=== PATIENT | male | born 1960 | race Caucasian/White ===

== ENCOUNTER 2016-09-11 10:40 | Inpatient (IN) ==
[2016-09-11] MEDS ORDERED: NS 500 ML IV ONE (13:18)
[2016-09-11] MEDS ORDERED: NS 2,000 ML ONE (13:25)
[2016-09-11 13:34] LABS: MANUAL DIFF NEEDED? NO
[2016-09-11 13:46] LABS: BASO% 0.9 % (0.0-0.8); EOS# 0.29 X1000 (0.0-0.7); EOS% 2.7 % (0.0-10.0); HEMATOCRIT 39.9 % (42.0-52.0); HEMOGLOBIN 13.3 g/dL (14.0-18.0); LYMPH# 2.05 X1000 (1.2-3.4); LYMPH% 19.3 % (20.5-51.1); MCH 29.3 PG (27-31); MCHC 33.3 g/dL (33-37); MCV 87.9 FL (81-99); MONO# 0.89 X1000 (0.11-0.59); MONO% 8.4 % (1.7-9.3); MPV 10.3 FL (7.4-10.4); NEUT% 68.7 % (42.2-75.2); PLT 222 X1000 (130-400); RBC 4.54 XMIL (4.7-6.1)
[2016-09-11 13:50] LABS: AGAP 13; ALBUMIN 3.7 g/dL (3.5-5.0); ALKALINE PHOSPHATASE 99 U/L (32-122); AMYLASE 96 U/L (20-200); BUN 20 mg/dL (8-22); CALCIUM 9.4 mg/dL (8.8-10.2); CHLORIDE 95 mmol/L (98-107); COSMO 282; GOT 14 U/L (10-34); GPT 13 U/L (10-44); LIPASE 21 U/L (13-60); POTASSIUM 4.5 mmol/L (3.5-5.1); SODIUM 135 mmol/L (136-145); TCO2 27 mmol/L (25-35); TOTAL BILIRUBIN 0.59 mg/dL (0.20-1.00); TOTAL PROTEIN 7.3 g/dL (6.3-8.3)
--- NOTE | 2016-09-11 14:17 | PROVIDER DOCUMENTATION ---
HPI-Abdominal Pain/GI Problem - General Chief Complaint: Diarrhea Stated Complaint: DIRRHEA,ABD PAIN,ABSCESS,DIABETIC,FOOT NUMBNESS Time Seen by Provider: 09/11/16 12:29 Source: patient Allergies/Adverse Reactions: Patient Allergies Allergy/AdvReac Type Severity Reaction Status Date / Time No Known Allergies Allergy Verified 09/11/16 12:53 Home Medications: Home Medication List Medication Instructions Recorded Confirmed Last Taken Type Diazepam [Valium] 10 mg PO BID 09/11/16 09/11/16 09/11/16 History Hydrocodone/Acetaminophen [[place] 10 mg PO PRN PRN 09/11/16 09/11/16 09/11/16 11: 00 History 10-325 Tablet] - History of Present Illness-ABD Nature of Presenting Problems: Pt with prior colostomy- placed 2 years ago with reanastomosis about 6 months ago. since then has had chronic diarrhea- Complains of increasing LLQ pain and rectal pain getting worse over last 2 weeks, and much worse last 3 days. Cannot sleep. Has incontinence. Insulin dependent diabetic on novolog and lantus. Abdominal Pain Onset Location: reports: LLQ Pain Radiation: reports: other (to rectal area) Quality of Pain: reports: burning, sharp Severity in ED: reports: severe (03/30) Onset/Duration: reports: gradual Timing: reports: still present Exposure to sick contacts?: No Modifying Factors: improves with: defecating, eating (has diarrhea every time she eats) Associated Symptoms: reports: diarrhea, vomiting, weakness Last BM: this morning Dark Stools Present?: reports: none noticed Rectal Bleeding: reports: none Bruising or Bleeding Gums?: No Similar Symptoms Previously?: No Review of Systems - Adult - REVIEW OF SYSTEMS - ADULT Constitutional: reports: see HPI, fatique. denies: chills, fever Eyes: reports: no symptoms reported Ears, Nose, Mouth & Throat: reports: no symptoms reported Cardiovascular: reports: no symptoms reported Respiratory: reports: no symptoms reported Gastrointestinal: reports: see HPI, abdominal pain, diarrhea, other (rectal pain ) Genitourinary: reports: no symptoms reported Musculoskeletal: reports: no symptoms reported Neurological: reports: numbness (feet) Psychiatric: reports: no symptoms reported Endocrine: reports: no symptoms reported Hematologic/Lymphatic: reports: no symptoms reported Allergic/Immunologic: reports: no symptoms reported Past History - Adult - PAST MEDICAL HISTORY-ADULT Review of Records: reports: Nursing Assessment Review, Medications Reviewed Major Childhood Illnesses: reports: history unknown Cardiovascular: reports: HTN Respiratory: reports: COPD Gastrointestinal: reports: colitis (s/p colostomy? unclear cause), other ( colostomy 2 yr ago, reanastomosis 6 months ago) Genitourinary: reports: denies history Musculoskeletal: reports: denies history Neurological: reports: other (neuropathy) Endocrine/Immune: reports: Diabetes Diabetes Type: Type 1 Diabetes controlled by:: Insulin Dependent (novolog and lantas- variable control ) - SOCIAL HISTORY Smoking: cigarettes, greater than 1 pack/day Physical Exam-General - PHYSICAL EXAM-ADULT Initial Vital Signs Reviewed: Yes - CONSTITUTIONAL General Appearance: mild distress - EYES Eyes: PERRL/EOMI - HEAD, EARS, NOSE, MOUTH & THROAT HENMT: normocephalic/atraumatic, normal ENT inspection - NECK Neck: non-tender, full range of motion - RESPIRATORY Respiratory: chest non-tender, lungs clear, normal breath sounds - CARDIOVASCULAR Cardiovascular: regular rate, rhythm, no edema, no gallop, no murmur - GASTROINTESTINAL (ABDOMEN) Abdominal Exam: soft, tenderness (LLQ no guard or rebound) - GENITOURINARY Male Genitalia: normal genitalia Rectal Exam: other (marked excoriation and maceration in perirectal area- extending in 5 cm area around anus without clear abscess or fluctuant area. large about light brown stool) - LYMPHATIC Lymphatic: no adenopathy - MUSCULOSKELETAL Back Exam: normal inspection Extremity: normal range of motion, non-tender Peripheral Pulses: dorsalis-pedis (R): 2+, dorsalis-pedis (L): 2+ - SKIN Integumentary: normal color, normal turgor, warm/dry - NEUROLOGIC Neurologic: grossly normal Progress - PLAN OF CARE/RESULTS Progress/Plan/Lab Results: Laboratory Tests 09/11/16 09/11/16 09/11/16 13:25 13:25 13:25 WBC 10.62 RBC 4.54 L Hgb 13.3 L Hct 39.9 L MCV 87.9 MCH 29.3 MCHC 33.3 RDW Std Deviation 13.4 Plt Count 222 MPV 10.3 Immature Gran % (Auto) 0.0 Neut % (Auto) 68.7 Lymph % (Auto) 19.3 L [place] % (Auto) 8.4 Eos % (Auto) 2.7 Baso % (Auto) 0.9 H Immature Gran # (Auto) 0.00 Neut # (Auto) 7.29 H Lymph # (Auto) 2.05 [place] # (Auto) 0.89 H Eos # (Auto) 0.29 Baso # (Auto) 0.10 Sodium 135 L Potassium 4.5 Chloride 95 L Carbon Dioxide 27 Anion Gap 13 BUN 20 Creatinine 0.9 Estimated GFR/1.73 m2 > 60 BUN/Creatinine Ratio 22 Glucose 257 H Estimat Average Glucose 252 Hemoglobin A1c 10.4 H Calculated Osmolality 282 Calcium 9.4 Magnesium Iron TIBC % Saturation Unsat Iron Binding Total Bilirubin 0.59 AST 14 ALT 13 Alkaline Phosphatase 99 Total Protein 7.3 Albumin 3.7 Globulin 3.6 Albumin/Globulin Ratio 1.0 Amylase 96 Lipase 21 Plasma Lactate Urine Source Urine Color Urine Clarity Urine pH Ur Specific [place] Urine Protein Urine Ketones Urine Blood Urine Nitrite Urine Bilirubin Urine Urobilinogen Urine Microscopic RBC Urine WBC Urine Microscopic WBC Ur Epithelial Cells Urine Bacteria Urine Glucose 09/11/16 09/11/16 09/11/16 13:25 13:25 15:00 WBC RBC Hgb Hct MCV MCH MCHC RDW Std Deviation Plt Count MPV Immature Gran % (Auto) Neut % (Auto) Lymph % (Auto) [place] % (Auto) Eos % (Auto) Baso % (Auto) Immature Gran # (Auto) Neut # (Auto) Lymph # (Auto) [place] # (Auto) Eos # (Auto) Baso # (Auto) Sodium Potassium Chloride Carbon Dioxide Anion Gap BUN Creatinine Estimated GFR/1.73 m2 BUN/Creatinine Ratio Glucose Estimat Average Glucose Hemoglobin A1c Calculated Osmolality Calcium Magnesium 1.7 Iron 46 L TIBC 340 % Saturation 14 Unsat Iron Binding 294 Total Bilirubin AST ALT Alkaline Phosphatase Total Protein Albumin Globulin Albumin/Globulin Ratio Amylase Lipase Plasma Lactate Urine Source CLEAN CATCH Urine Color YELLOW Urine Clarity CLEAR Urine pH 5.5 Ur Specific [place] <= 1.005 Urine Protein NEGATIVE Urine Ketones NEGATIVE Urine Blood SMALL A Urine Nitrite NEGATIVE Urine Bilirubin NEGATIVE Urine Urobilinogen 0.2 Urine Microscopic RBC <10 Urine WBC NEGATIVE Urine Microscopic WBC 10-20 A Ur Epithelial Cells <10 Urine Bacteria NEGATIVE Urine Glucose >=1000 A 09/11/16 16:07 WBC RBC Hgb Hct MCV MCH MCHC RDW Std Deviation Plt Count MPV Immature Gran % (Auto) Neut % (Auto) Lymph % (Auto) [place] % (Auto) Eos % (Auto) Baso % (Auto) Immature Gran # (Auto) Neut # (Auto) Lymph # (Auto) [place] # (Auto) Eos # (Auto) Baso # (Auto) Sodium Potassium Chloride Carbon Dioxide Anion Gap BUN Creatinine Estimated GFR/1.73 m2 BUN/Creatinine Ratio Glucose Estimat Average Glucose Hemoglobin A1c Calculated Osmolality Calcium Magnesium Iron TIBC % Saturation Unsat Iron Binding Total Bilirubin AST ALT Alkaline Phosphatase Total Protein Albumin Globulin Albumin/Globulin Ratio Amylase Lipase Plasma Lactate 1.2 Urine Source Urine Color Urine Clarity Urine pH Ur Specific [place] Urine Protein Urine Ketones Urine Blood Urine Nitrite Urine Bilirubin Urine Urobilinogen Urine Microscopic RBC Urine WBC Urine Microscopic WBC Ur Epithelial Cells Urine Bacteria Urine Glucose Orders Category Date Time Status FSBS [Finger Stick Blood Sugar (ED)] DIRECTED Care 09/11/16 13:19 Active Nursing- MD Consult Request ROUTINE Care 09/11/16 16:31 Active Nursing- MD Consult Request ROUTINE Care 09/11/16 16:36 Active Saline Loc DIRECTED Care 09/11/16 13:17 Active MD [Physician/Provider Consults] Routine Cons 09/11/16 16:36 Ordered Physician/Provider Consults Routine Cons 09/11/16 16:31 Ordered NPO Diet 09/11/16 13:17 Active CHEST-PORTABLE [RAD] Stat Exams 09/11/16 15:[address] ABD/PELVIS W/ IV CONT ONLY [CT] Stat Exams 09/11/16 14:11 Completed A1C HGB W EST AVG GLUCOSE [CHEM] Timed Lab 09/11/16 13:25 Completed AMYLASE [CHEM] Stat Lab 09/11/16 13:25 Completed BLOOD CULTURE [BLDCUL] Stat Lab 09/11/16 16:03 Received C DIFF TOXIN [STOOL] Routine Lab 09/11/16 16:38 Ordered CBC WITH ELECTRONIC DIFF [HEME] Stat Lab 09/11/16 13:25 Completed COMPREHENSIVE METABOLIC PANEL [CHEM] Stat Lab 09/11/16 13:25 Completed ELECTROLYTES STOOL [LINCOLN] Routine Lab 09/11/16 16:34 Uncollected FOLATE Timed Lab 09/11/16 13:25 Received FREE T4 Timed Lab 09/11/16 13:25 Received H PYLORI ANTIGEN STOOL [LINCOLN] Stat Lab 09/11/16 16:34 Uncollected LACTATE, PLASMA [CHEM] Stat Lab 09/11/16 16:07 Completed LACTOFERRIN STOOL [PALAFOX] Routine Lab 09/11/16 16:35 Uncollected LIPASE [CHEM] Stat Lab 09/11/16 13:25 Completed MAGNESIUM [CHEM] Timed Lab 09/11/16 13:25 Completed OCCULT BLOOD SCREENING [STOOL] Stat Lab 09/11/16 13:09 Completed OVA AND PARASITE W/TRICHROME [STOOL] Routine Lab 09/11/16 16:36 Uncollected TSH Timed Lab 09/11/16 13:25 Received UIBC W TOTAL IRON [CHEM] Timed Lab 09/11/16 13:25 Completed URINE CULTURE [RM] Routine Lab 09/11/16 15:45 Received WBC STOOL [STOOL] Stat Lab 09/11/16 16:34 Uncollected 0.9% Sodium Chloride Inj [Ns] 1,000 ml Med 09/11/16 13:25 Discontinued .ROUTE As Directed 0.9% Sodium Chloride Inj [Ns] 1,000 ml Med 09/11/16 15:55 Active IV 100 mls/hr 0.9% Sodium Chloride Inj [Ns] 500 ml Med 09/11/16 13:18 Discontinued IV 999 mls/hr Ciprofloxacin 400 mg/D5w [Cipro 400 mg/D5w] 200 ml Med 09/11/16 16:27 Active IV NOW Ciprofloxacin 400 mg/D5w [Cipro 400 mg/D5w] 200 ml Med 09/11/16 16:30 Ordered IV Q12H Hydromorphone [Dilaudid] Med 09/11/16 16:37 Active 1 mg IV Q4H PRN PRN Metronidazole 500 mg/Ns [Flagyl 500 mg/Ns] 100 ml Med 09/11/16 16:30 Active IV Q6H Morphine Med 09/11/16 15:57 Discontinued 2 mg IV Q2H PRN PRN EKG [EKG] Stat Ther 09/11/16 15:50 Ordered Echo Spec/Color Dop W/O Contra [CV] Routine Ther 09/11/16 16:58 Ordered Venous U/S Bilateral Legs [CV] Routine Ther 09/11/16 16:58 Ordered Transfer/Admit Order [TRANSFER] Routine Transfer 09/11/16 16:26 Ordered Vital Signs Temp Pulse Resp BP Pulse Ox 09/11/16 15:44 98.6 F 85 22 129/78 100 09/11/16 10:52 98.1 F 101 H 18 131/89 100 No Known Allergies Allergy (Verified 09/11/16 12:53) Diazepam [Valium] 10 mg PO BID 09/11/16 Hydrocodone/Acetaminophen [[place] 10-325 Tablet] 10 mg PO PRN PRN 09/11/16 Dietary Diet NPO Start FriSep 11 1317 I&O 09/10/16 09/11/16 09/12/16 06:59 06:59 06:59 Output Total 90 Balance -90 Laboratory 09/11/16 09/11/16 09/11/16 16:07 15:00 13:25 WBC RBC Hgb Hct MCV MCH MCHC RDW Std Deviation Plt Count MPV Immature Gran % (Auto) Neut % (Auto) Lymph % (Auto) [place] % (Auto) Eos % (Auto) Baso % (Auto) Immature Gran # (Auto) Neut # (Auto) Lymph # (Auto) [place] # (Auto) Eos # (Auto) Baso # (Auto) Sodium Potassium Chloride Carbon Dioxide Anion Gap BUN Creatinine Estimated GFR/1.73 m2 BUN/Creatinine Ratio Glucose Estimat Average Glucose Hemoglobin A1c Calculated Osmolality Calcium Magnesium Iron 46 L TIBC 340 % Saturation 14 Unsat Iron Binding 294 Total Bilirubin AST ALT Alkaline Phosphatase Total Protein Albumin Globulin Albumin/Globulin Ratio Amylase Lipase Plasma Lactate 1.2 Urine Source CLEAN CATCH Urine Color YELLOW Urine Clarity CLEAR Urine pH 5.5 Ur Specific [place] <= 1.005 Urine Protein NEGATIVE Urine Ketones NEGATIVE Urine Blood SMALL A Urine Nitrite NEGATIVE Urine Bilirubin NEGATIVE Urine Urobilinogen 0.2 Urine Microscopic RBC <10 Urine WBC NEGATIVE Urine Microscopic WBC 10-20 A Ur Epithelial Cells <10 Urine Bacteria NEGATIVE Urine Glucose >=1000 A 09/11/16 09/11/16 09/11/16 13:25 13:25 13:25 WBC 10.62 RBC 4.54 L Hgb 13.3 L Hct 39.9 L MCV 87.9 MCH 29.3 MCHC 33.3 RDW Std Deviation 13.4 Plt Count 222 MPV 10.3 Immature Gran % (Auto) 0.0 Neut % (Auto) 68.7 Lymph % (Auto) 19.3 L [place] % (Auto) 8.4 Eos % (Auto) 2.7 Baso % (Auto) 0.9 H Immature Gran # (Auto) 0.00 Neut # (Auto) 7.29 H Lymph # (Auto) 2.05 [place] # (Auto) 0.89 H Eos # (Auto) 0.29 Baso # (Auto) 0.10 Sodium Potassium Chloride Carbon Dioxide Anion Gap BUN Creatinine Estimated GFR/1.73 m2 BUN/Creatinine Ratio Glucose Estimat Average Glucose 252 Hemoglobin A1c 10.4 H Calculated Osmolality Calcium Magnesium 1.7 Iron TIBC % Saturation Unsat Iron Binding Total Bilirubin AST ALT Alkaline Phosphatase Total Protein Albumin Globulin Albumin/Globulin Ratio Amylase Lipase Plasma Lactate Urine Source Urine Color Urine Clarity Urine pH Ur Specific [place] Urine Protein Urine Ketones Urine Blood Urine Nitrite Urine Bilirubin Urine Urobilinogen Urine Microscopic RBC Urine WBC Urine Microscopic WBC Ur Epithelial Cells Urine Bacteria Urine Glucose 09/11/16 13:25 WBC RBC Hgb Hct MCV MCH MCHC RDW Std Deviation Plt Count MPV Immature Gran % (Auto) Neut % (Auto) Lymph % (Auto) [place] % (Auto) Eos % (Auto) Baso % (Auto) Immature Gran # (Auto) Neut # (Auto) Lymph # (Auto) [place] # (Auto) Eos # (Auto) Baso # (Auto) Sodium 135 L Potassium 4.5 Chloride 95 L Carbon Dioxide 27 Anion Gap 13 BUN 20 Creatinine 0.9 Estimated GFR/1.73 m2 > 60 BUN/Creatinine Ratio 22 Glucose 257 H Estimat Average Glucose Hemoglobin A1c Calculated Osmolality 282 Calcium 9.4 Magnesium Iron TIBC % Saturation Unsat Iron Binding Total Bilirubin 0.59 AST 14 ALT 13 Alkaline Phosphatase 99 Total Protein 7.3 Albumin 3.7 Globulin 3.6 Albumin/Globulin Ratio 1.0 Amylase 96 Lipase 21 Plasma Lactate Urine Source Urine Color Urine Clarity Urine pH Ur Specific [place] Urine Protein Urine Ketones Urine Blood Urine Nitrite Urine Bilirubin Urine Urobilinogen Urine Microscopic RBC Urine WBC Urine Microscopic WBC Ur Epithelial Cells Urine Bacteria Urine Glucose - EKG 1 Time of EKG reading by physician:: 16:00 EKG Read and Signed by:: Sonia León EKG Interpretation (*Must complete 3 of following elements*): Normal Rate: 88 Rhythm: nsr [place]: normal DC Interval: normal ST Wave: normal - CT/MRI 1 CT Study: Abdomen (distended bladder, pneumatosis coli in proximal colon, gastric wall thickening, tight stenosis of L common iliac arterey) - CONSULTS/PCP/HOSPITALIST Notification #1 *Consult/PCP/Hospitalist*: Dr Escamilla Time Discussed: 16:15 Consult Disposition: Will see in ED, Admit - CHANGE OF SHIFT REPORT (ED Provider) Tentative Impression of Patient: IDDM with abdominal pain- colitis, UTI Departure - Departure Time of Disposition Order: 16:15 DIAGNOSIS: Colitis, Diabetes, UTI (urinary tract infection) Disposition: ADMITTED INPATIENT 09 Certified Medical Emergency: Emergent Condition: Fair
[2016-09-11 15:14] LABS: URINE SOURCE CLEAN CATCH
--- NOTE | 2016-09-11 15:28 | Diag Imaging Result Document ---
PROCEDURE NAME: CT ABD/PELVIS W/ IV CONT ONLY - 09/11/2016 CT ABDOMEN AND PELVIS WITH INTRAVENOUS CONTRAST: COMPARISON: No comparison films. FINDINGS: There are increased markings in the right lung base which may simply be fibrosis. There is thickening to the gastric wall although the stomach is not distended. The liver is prominent. No focal hepatic abnormality. The spleen is mildly enlarged measuring just over 14 cm. Normal pancreas, gallbladder, and adrenal glands. Normal enhancement of the kidneys. No renal masses. No hydronephrosis. No aortic aneurysm. There is an inferior vena cava filter beneath the renal veins. There are sutures in the ascending colon. There is pneumatosis coli of the ascending and proximal transverse colon. The urinary bladder is markedly distended. The prostate is not enlarged. 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 IMPRESSION: 1. Markedly distended urinary bladder. 2. Pneumatosis coli involving the proximal colon. 3. Mild hepatosplenomegaly. 4. Thickening to the gastric wall although it is incompletely distended. 5. 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 A preliminary report was called to the Emergency Room and given to Dr León at 3 :08 p.m.. MTDD
[2016-09-11 15:40] LABS: BILIRUBIN URINE NEGATIVE (NEGATIVE); BLOOD URINE SMALL (NEGATIVE); CLARITY CLEAR (CLEAR); COLOR YELLOW; GLUCOSE URINE >=1000 mg/dL (NEGATIVE); LEUKOCYTES URINE NEGATIVE (NEGATIVE); NITRITE URINE NEGATIVE (NEGATIVE); PH URINE 5.5; PROTEIN URINE NEGATIVE (NEGATIVE); SP GRAVITY URINE <= 1.005; UROBILINOGEN URINE 0.2 EU/dL (0.2-1.0)
[2016-09-11 15:45] LABS: URINE CULTURE NEEDED? YES; URINE EPITHELIAL CELLS <10 /HPF (<10); URINE RBC <10 /HPF (<10)
[2016-09-11] MEDS ORDERED: NS 1,000 ML IV ONE (15:55)
[2016-09-11] MEDS ORDERED: MORPHINE IV PRN (15:57)
[2016-09-11] MEDS ORDERED: CIPRO 400 MG/D5W 200 ML IV ONE (16:27)
--- NOTE | 2016-09-11 16:40 | Diag Imaging Result Document ---
PROCEDURE NAME: CHEST-PORTABLE - 09/11/2016 PORTABLE CHEST: FINDINGS: The lungs are well expanded. The heart is not enlarged. The vessels are not distended. No pneumonia. No pleural effusions identified. No free air beneath the diaphragm. IMPRESSION: Negative chest.
[2016-09-11 16:55] LABS: IRON SATURATION 14 %; TIBC 340 ug/dL; TOTAL IRON 46 ug/dL (53-167); UNBOUND IRON 294 ug/dL (112-346)
[2016-09-11 16:57] LABS: HEMOGLOBIN A1C 10.4 % (4.8-6.0)
[2016-09-11 17:06] LABS: FREE T4 1.11 ng/dL (0.93-1.70)
[2016-09-11] MEDS ORDERED: BENADRYL IV ONE (17:14)
[2016-09-11] MEDS ORDERED: BENADRYL ONE (17:16)
--- NOTE | 2016-09-11 17:42 | HISTORY AND PHYSICAL ---
PRIMARY CARE PHYSICIAN: Dr. Guzmán in the [facility]. CHIEF COMPLAINT: Abdominal pain and diarrhea. HISTORY OF PRESENT ILLNESS: Mr. Carolina is a 55-year-old male with a history of diabetes mellitus, hypertension, nicotine dependence, history of some type of bowel perforation he blames on high blood sugar around 1 year ago. He is unable to tell us exactly what type of surgery, what diagnosis he had; however, he had a partial colectomy with an ostomy bag placed and subsequent reversal of his ostomy. He states that over the past 3 months he has been having heavy amounts of diarrhea and occasional hematochezia. He has gone to multiple hospitals in the [facility], and he feels that he has not been treated appropriately. He has been given some type of powder, we are assuming Questran, to relieve his diarrhea. He denies any fevers or chills. He does report abdominal pain in the right lower and left lower quadrants that is fairly intense at all times. He has not been able to eat much, and he has been losing weight. He came here today for an evaluation as the pain has been getting worse and worse. When he got to the ER, he had labs done which did not show anything acute. No white count. His chemistry was actually benign, but a CT of the abdomen and pelvis did reveal that he had a markedly distended urinary bladder with pneumatosis coli involving the proximal colon and thickening of the gastric wall. He was also noted to have an extremely tight stenosis over 90% involving the proximal left common iliac artery. On exam, his belly is soft and nonrigid, but he is quite tender to palpation. His vital signs are stable. He is not hypotensive, nor is he febrile. We have obtained blood cultures and started antibiotics, and we are now going to admit him for further treatment and evaluation. PAST MEDICAL HISTORY: 1. Diabetes mellitus. 2. Hypertension. 3. Some type of bowel perforation around 1 year ago for which he had a procedure done at [facility]. 4. Chronic pain. 5. Anxiety. 6. Nicotine dependence. SURGICAL HISTORY: He has had a partial colectomy and reversal of colostomy. SOCIAL HISTORY: Patient smokes 2 packs a day. He denies alcohol or drug use. He is single on disability. FAMILY HISTORY: Noncontributory. REVIEW OF SYSTEMS: General: He reports weight loss. Unspecified amount. HEENT: He denies any nasal or oral discharge. No throat pain or redness. He has had no visual changes or loss of consciousness. Respiratory: He reports occasional shortness of breath with exertion, but he denies any expectoration or phlegm production. CV: He denies any chest pain. He does report lower extremity edema bilaterally. GI: He has been having nausea, vomiting and diarrhea. Occasional hematochezia, but no hematemesis. : He denies any hematuria or dysuria. Endocrine: He denies any night sweats or hot or cold intolerance. MEDICATIONS: The patient did not bring his medication list. It is currently being compiled. ALLERGIES: No known drug allergies. PHYSICAL EXAMINATION: VITAL SIGNS: Blood pressure is 129/78, heart rate 85, respiratory rate is 22, O2 saturations 100% on room air. Temperature is 98.1 degrees. GENERAL: This is a frail, chronically ill-appearing, 55-year-old male , lying in hospital bed in no acute distress. NEUROLOGIC: He is awake, alert, and oriented. He follows commands without focal deficits. HEENT: Head is atraumatic and normocephalic. His pupils are equal, round, and reactive to light. Oral mucosa is dry. Trachea is midline. There is no JVD. CHEST: Essentially clear to auscultation bilaterally. Decreased at the bases. CV: Regular rate and rhythm. S1-S2 is noted. GI: Diffusely tender to palpation but there is no rigidity. Bowel sounds are hypoactive. EXTREMITIES: One to 2+ edema bilaterally with pulses palpable but quite diminished. Both feet are warm. Cap refill is decreased. DIAGNOSTIC DATA: WBC 10.63, hemoglobin 13.3, hematocrit 39.9, platelet count 222,000. Sodium 135, potassium 4.5, chloride 95, CO2 of 27, anion gap 13, BUN 20, creatinine 0.9 , glucose is 257, calcium 9.4, magnesium 1.7, bilirubin 0.59, AST 14, ALT 13, alkaline phosphatase 99, albumin 3.7, lipase 21. Lactate 1.2. UA shows greater than 1000 glucose, small blood, otherwise negative. CT abdomen and pelvis shows pneumatosis coli markedly, distended urinary bladder, mild hepatosplenomegaly. Thickening of the gastric wall. Extremely tight stenosis in 90% involving the proximal left common iliac. Chest x-ray is negative for acute process. ASSESSMENT AND PLAN: 1. Pneumatosis coli: We are going to obtain blood cultures. Start ciprofloxacin, Floxin, and Flagyl and consult GI and surgery. We will monitor his vitals closely and add IV fluids. 2. Lower extremity pain and edema: We are going to check bilateral lower extremity ultrasounds venous doppler and an echocardiogram given his dyspnea. 3. Dyspnea on exertion: Likely secondary to COPD given his longstanding history of heavy nicotine dependence. Chest x-ray is clear, but we are going to check an echocardiogram to rule out myocardial infarction with cardiac enzymes and check an EKG. Start duonebs. 4. Diabetes mellitus: We are checking a hemoglobin A1c. Add pattern blood sugars, and sliding scale insulin. We will add his home insulin regimen once we have obtained it. 5. Diarrhea: Please see #1. We are also going to add stool studies and continue antibiotics. 6. Hypertension: Chronic and stable at this time. We are going to add p.r.n. IV medications as needed. 7. Nicotine dependence: Patient has been highly advised to quit smoking. We will start a nicotine patch and continue daily cessation education. 8. GI prophylaxis with Protonix. Deep vein thrombosis prophylaxis with SCDs and TEDs given his gastrointestinal bleeding and colitis. Further recommendations to follow. Dictated by MANJULA Rincon for Yael Mendieta MD MTDJuan Carlos
[2016-09-11] MEDS ORDERED: DUONEB (A & A) INH PRN (17:45)
[2016-09-11] MEDS ORDERED: APRESOLINE IV PRN (17:45)
[2016-09-11] MEDS: DUONEB (A & A) INH SCH ×2 (19:45→23:15)
[2016-09-11] MEDS: DILAUDID IV PRN (20:58)
[2016-09-11] MEDS: PROTONIX IV SCH (20:58)
[2016-09-11] MEDS: SODIUM CHLORIDE 0.9% INJ SCH (20:58)
[2016-09-11] MEDS: FLAGYL 500 MG/NS 100 ML IV SCH (20:59)
[2016-09-11] MEDS: NICODERM PATCH TD SCH (20:59)
[2016-09-11] MEDS: VALIUM PO SCH (22:57)
[2016-09-11] MEDS: HUMALOG SUBQ SCH (22:57)
[2016-09-12] MEDS: DILAUDID IV PRN ×6 (00:29→23:19)
[2016-09-12 03:10] LABS: HEMATOCRIT 33.7 % (42.0-52.0); HEMOGLOBIN 11.3 g/dL (14.0-18.0); MCH 29.7 PG (27-31); MCHC 33.5 g/dL (33-37); MCV 88.5 FL (81-99); MPV 10.4 FL (7.4-10.4); RBC 3.81 XMIL (4.7-6.1)
[2016-09-12] MEDS: DUONEB (A & A) INH SCH ×6 (03:10→23:31)
[2016-09-12 03:31] LABS: AGAP 10; BUN 14 mg/dL (8-22); CALCIUM 8.2 mg/dL (8.8-10.2); CHLORIDE 102 mmol/L (98-107); COSMO 282; POTASSIUM 3.8 mmol/L (3.5-5.1); SODIUM 138 mmol/L (136-145); TCO2 26 mmol/L (25-35)
--- NOTE | 2016-09-12 04:13 | CONSULTATION ---
DATE OF CONSULTATION: 09/11/2016 CHIEF COMPLAINT: Perianal pain, chronic diarrhea, some abdominal discomfort. HISTORY OF PRESENT ILLNESS: This is a 55-year-old diabetic white male who presents with some abdominal discomfort and diarrhea and perianal irritation. He had a colectomy with a colostomy the end of 2014. He had a reversed about 6 months later in the middle of 2015. This was all at [facility]. He has had chronic loose stools since that time. He has developed perianal irritation over the past few months and it is relentless as far as discomfort. PAST HISTORY: Pertinent for diabetes, hypertension, chronic pain, anxiety, nicotine dependence. He has had a colectomy and the colostomy reversal. I do not know his home medications. He has no known drug allergies. SOCIAL HISTORY: He does smoke. He is quite mobile in his residence. FAMILY HISTORY: Not contributory. REVIEW OF SYSTEMS: No fever. He is eating. He does have some nausea. He has constant diarrhea and stooling. Denies chest pain or shortness of breath. No dysuria. PHYSICAL EXAMINATION: Vital Signs: He is afebrile. Heart rate 86, respiratory rate 20, blood pressure 151/91, somewhat disheveled. No cervical adenopathy. Lungs: Bilateral breath sounds. Heart: Regular rate and rhythm. Abdomen: Soft. A midline scar is noted. The right upper quadrant scar is noted. Bowel sounds are present. No hernia palpated. He has no peritoneal signs. Anorectal: He has severe perianal irritation with soilage. it is difficult to do a rectal exam due to the inflammation and pain. Extremities: He does have pedal pulses, better on the right than the left. ASSESSMENT: 1. Pneumatosis seen on CT scan of uncertain etiology. He does not have peritoneal signs. 2. Perianal irritation that is dramatic. He is going to need some kind of pain relief and treatment for his fecal incontinence.
[2016-09-12] MEDS: NS 1,000 ML IV SCH ×4 (05:22→20:30)
[2016-09-12] MEDS: FLAGYL 500 MG/NS 100 ML IV SCH ×4 (05:26→20:24)
--- NOTE | 2016-09-12 05:54 | EKG Report ---
Test Performed on : 09/11/2016 3:56:35 PM Test Reason : abdominal pain Blood Pressure : / mmHG Vent. Rate : 088 BPM Atrial Rate : 088 BPM P-R Int : 140 ms QRS Dur : 074 ms QT Int : 382 ms P-R-T Axes : 044 049 069 degrees QTc Int : 462 ms Normal sinus rhythm. Normal ECG No previous ECGs available Unconfirmed Result
[2016-09-12] MEDS: CIPRO 400 MG/D5W 200 ML IV SCH ×2 (06:49→17:13)
[2016-09-12] MEDS: HUMALOG SUBQ SCH ×4 (06:50→20:23)
[2016-09-12] MEDS: VALIUM PO SCH ×2 (10:07→20:24)
[2016-09-12] MEDS: NICODERM PATCH TD SCH (11:10)
--- NOTE | 2016-09-12 13:30 | ECHO REPORT ---
ORDER DATE: 09/11/2016 INTERPRETING PHYSICIAN: Dr. Michael Muse ECHOCARDIOGRAPHIC MEASUREMENTS: Interventricular septum: 0.9 cm. Left ventricular posterior wall: 0.9 cm. Diastolic diameter: 3.5 cm. Left atrium: 4 cm. Aortic root: 3.5 cm. SUMMARY OF THE 2-DIMENSIONAL IMAGIN. Normal left ventricular cavity size. Estimated ejection fraction of 55-60%. 2. Aortic valve leaflets are trileaflet. Mitral valve was normal. Pulmonic valve not well visualized. Tricuspid valve was normal. 3. Peak velocity across the aortic valve less than 2 m/sec. There is no aortic stenosis or regurgitation. There is trace to mild mitral regurgitation. There is mild tricuspid regurgitation. Peak velocity across the tricuspid valve less than 2 m/sec. 4. There is no pericardial effusion or obvious intracardiac mass or thrombus seen.
[2016-09-12] MEDS ORDERED: GOLYTELY PO ONE (14:00)
--- NOTE | 2016-09-12 14:51 | CONSULTATION ---
DATE OF CONSULTATION: 09/12/2016 GASTROENTEROLOGY CONSULTATION: ATTENDING PHYSICIAN: Dr. Mendieta. REASON FOR CONSULTATION: Abdominal pain, constipation, diarrhea, evidence of pneumatosis on CT scan. HISTORY OF PRESENT ILLNESS: Mr. Carolina is a 55-year-old male, who was admitted for abdominal pain in the periumbilical region along with altered bowel habits going on for the last 1 year. He had a history of bowel perforation, rebleed colonic perforation in 2014. At that time, he had a colostomy at [facility], followed by colostomy reversal a few months later. He has been having altered bowel habits since then. He denies any vomiting blood or passing blood in the stools. He does have a history of heavy smoking and COPD. His imaging done during this admission showed evidence of pneumatosis coli in the right colon, thickening of the gastric wall, and extremely tight stenosis, 90%, in the proximal left common iliac. Gastroenterology was called for further management. PAST MEDICAL HISTORY: Diabetes, hypertension, colonic perforation requiring colostomy and reversal at [facility], chronic pain, anxiety, nicotine dependence, COPD. SURGICAL HISTORY: Partial colectomy and reversal of colostomy 2014. SOCIAL HISTORY: Smokes 2 packs a day for many decades. Denies history of alcohol or drug abuse. He is single. He is on disability. FAMILY HISTORY: Noncontributory. Denies history of colon polyps in the family. REVIEW OF SYSTEMS: Denies any fevers, rigors, or chills, chest pain, shortness of breath at rest. But he does have shortness of breath on exertion and has questionable COPD per the primary care team. He has a heavy smoking history. He denies any vomiting or passing blood in the stools or black stools. He does complain of weight loss. He is unable to quantify. He denies any neurologic complaints. MEDICATIONS IN THE HOSPITAL: Include: Dilaudid, hydralazine, albuterol/ ipratropium, lidocaine, metronidazole, ciprofloxacin, albuterol/ipratropium, insulin INC 00:02:32> Humalog, nicotine patch, IV fluids normal saline at 75 per hour, Protonix IV q.24 hours, and Valium 10 mg p.o. b.i.d. DIET: He is currently on a clear liquid diet. ALLERGIES: No known drug allergies. MEDICATIONS AT HOME: Include Armbrust 10/325 once daily, and Valium 10 mg p.o. b.i.d. PHYSICAL EXAMINATION: Vital Signs: Temperature 98.3 degrees, pulse rate of 87 , respiratory rate 18, blood pressure 132/89, saturating at 98% on room air. Body weight of 150 pounds, 12.8 ounces. BMI of 22 kg/m2. General Appearance: Thinly built, lying in bed, in no acute distress. HEENT: Pale conjunctivae. No icterus. Pupils equal, react to light. Neck: Supple. Chest: Decreased in the bases. Hyperinflated chest. Cardiovascular: Regular rhythm. Abdomen: Midline scar oliveira were noted. Mild protuberance in the periumbilical region noted, unclear if there is any abdominal wall hernia or weakness from previous surgery. Bowel sounds are present. No guarding. No rebound. Discomfort in the periumbilical region. Extremities: No cyanosis , clubbing, edema. Neurologic: Alert, awake, oriented times 3. Rectal Exam: not performed. LABS: Hemoglobin and hematocrit 11.3 and 33.7, white count of 6.8, platelet count of 189,000. Sodium of 138, potassium 3.8, chloride 102, bicarbonate 26, anion gap 10, BUN of 14, creatinine 0.9, glucose of 190, calcium is 8.2, troponin less than 0.01. Calcium is 8.2, glucose 401. Iron study for saturation of 14% iron of 46, TIBC 340, AST 14, ALT 13, alkaline phos 99, total protein 4.3, albumin 3.7, amylase of 96, lipase of 21, total bilirubin is 0.59. Urinalysis showing few white cells, small blood, positive glucose. IMAGING: CT of the abdomen and pelvis done on 09/11/2016 showed markedly distended urinary bladder and pneumatosis coli involving the proximal colon, mild hepatosplenomegaly, thickening of the gastric wall although was incomplete distended, extremely tight stenosis over 90% involving the proximal left common iliac artery. There is an inferior vena cava filter beneath the renal veins. The spleen is mildly enlarged over 14 cm. The are sutures in the ascending colon. There is pneumatosis coli of the ascending and proximal transverse colon. Plasma lactate level of 1.2. IMPRESSION AND PLAN: 1. 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 His lactate level is normal. But he is having intermittent symptoms going on for the last 1 year thus raising a question of mesenteric vasculature disease. Surgery has been consulted and Dr. Hwang will be evaluating the patient. In the interim we will schedule for EGD and colonoscopy tomorrow with Dr. Soria. 2. We will continue on Protonix once daily, and we also recommend the patient to quit smoking completely. 3. Further recommendations to follow pending hospital course. [facility]ITAL[facility]
[2016-09-12] MEDS: ANUSOL-HC CREAM PR SCH ×2 (15:19→20:23)
[2016-09-12] MEDS: CENTRUM SILVER PO SCH (15:19)
--- NOTE | 2016-09-12 17:01 | PROGRESS NOTE ---
DATE: 09/12/2016 SUBJECTIVE: The patient complains of persistent diarrhea. He denies having any nausea or vomiting. He states that he is hungry and wants to eat. OBJECTIVE: Vital Signs: Temperature 97.5 degrees, blood pressure 117/70, heart rate 81, respirations 16, O2 saturations 99% on room air. General: This is an elderly male, lying in bed, in no acute distress. Head: Normocephalic, atraumatic. Heart: S1, S2. Normal. Regular rate and rhythm. Lungs: Clear to auscultation bilaterally. Abdomen: Positive bowel sounds. Soft, nontender, nondistended. Extremities: No edema. No cyanosis. No calf tenderness. Neurologic: The patient is alert and oriented x3. LABS: White blood cell count 6.8, hemoglobin 11, hematocrit 33, platelets 189,000. Sodium 138, potassium 3.8, chloride 102, CO2 26, BUN 14, creatinine 0.9, glucose 198, calcium 8.2. ASSESSMENT AND PLAN: 1. 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 The patient is scheduled to undergo endoscopy tomorrow. Gastroenterology is following. 2. 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 The patient is being followed by General Surgery. 3. Tobacco dependence. The patient has been counseled about smoking cessation. 4. Diabetes mellitus type 2. Continue on sliding scale insulin. 5. Chronic bilateral deep venous thrombosis of the lower extremities status post IVC filter placement. Aware. 6. Gastrointestinal prophylaxis. Continue on Protonix.
[2016-09-12] MEDS: SODIUM CHLORIDE 0.9% INJ SCH (17:13)
[2016-09-12] MEDS: PROTONIX IV SCH (17:13)
[2016-09-13] MEDS: FLAGYL 500 MG/NS 100 ML IV SCH ×4 (02:31→21:15)
[2016-09-13] MEDS: DILAUDID IV PRN ×4 (02:58→21:13)
[2016-09-13] MEDS: DUONEB (A & A) INH SCH ×6 (03:31→23:29)
[2016-09-13] MEDS: CIPRO 400 MG/D5W 200 ML IV SCH ×2 (04:27→17:55)
[2016-09-13] MEDS: HUMALOG SUBQ SCH ×4 (06:20→21:57)
[2016-09-13 06:34] LABS: HEMATOCRIT 33.2 % (42.0-52.0); HEMOGLOBIN 10.8 g/dL (14.0-18.0); MCH 29.6 PG (27-31); MCHC 32.5 g/dL (33-37); MPV 10.3 FL (7.4-10.4); RBC 3.65 XMIL (4.7-6.1)
[2016-09-13 06:45] LABS: INR 1.11; PROTIME 11.8 Seconds (9.2-11.7); PTT 26.4 Seconds (22.0-36.0)
[2016-09-13] MEDS ORDERED: MAGNESIUM SULFATE 2 GM/S.W.I. 50 ML IV ONE (06:51)
[2016-09-13 06:58] LABS: AGAP 12; BUN 11 mg/dL (8-22); CALCIUM 8.2 mg/dL (8.8-10.2); CHLORIDE 96 mmol/L (98-107); COSMO 285; POTASSIUM 5.2 mmol/L (3.5-5.1); SODIUM 135 mmol/L (136-145); TCO2 27 mmol/L (25-35)
[2016-09-13] MEDS: ANUSOL-HC CREAM PR SCH ×2 (08:45→21:22)
--- NOTE | 2016-09-13 09:50 | Extremity Venous Study ---
PROCEDURE NAME: Venous U/S Bilateral Legs - 09/11/2016 REFERRING PHYSICIAN: Romelia BROACHING MACHINE REPAIRER: Franki Nunez, RVT INDICATION: Swelling of the limb (ICD-10 M79.89). The patient also has history of a venous filter. FINDINGS: The right common femoral vein and its branches, the deep and superficial femoral veins were satisfactorily imaged. There is evidence of extensive chronic thrombophlebitis involving these veins and extending into the right popliteal vein and the small veins below the right knee. There is flow through these veins, but there is evidence of chronic thrombophlebitis throughout. The deep veins of the right lower extremity in some areas we cannot rule out acute thrombosis. These veins are not occluded with thrombus, but the baird of the veins are thickened and have evidence of chronic thrombophlebitis. Superficial veins of the right lower extremity were compressible and again had evidence of chronic thrombophlebitis but were not occluded. The left common femoral vein and its branches, the deep and superficial femoral veins were also satisfactorily imaged, and again there was diffuse chronic thrombophlebitis involving these veins. There was recannulization of these veins with flow through them, but we could not rule out areas of acute clot in these veins. This extended down into the left popliteal vein and the deep veins below the left knee. Superficial veins of the left lower extremity also had evidence of chronic thrombophlebitis. INTERPRETATION: 1. Extensive chronic thrombophlebitis involving the deep and superficial veins bilaterally of the lower extremities. 2. We could not rule out areas of acute DVT involving the deep veins of the bilateral lower extremities, but the chronic disease and possible acute disease did not cause any obstruction of these veins. 3. Bilateral superficial thrombophlebitis of both lower extremities.
[2016-09-13] MEDS: NICODERM PATCH TD SCH (10:09)
[2016-09-13] MEDS ORDERED: MYLICON DROPS (DOSE) MISC ONE (11:19)
[2016-09-13] MEDS ORDERED: DIPRIVAN 1% ONE (11:47)
[2016-09-13] MEDS ORDERED: VERSED ONE (11:47)
[2016-09-13] MEDS ORDERED: LR 1,000 ML ONE (11:53)
[2016-09-13] MEDS ORDERED: XYLOCAINE-MPF 2% ONE (11:53)
[2016-09-13] MEDS ORDERED: ANESTHESIA PB SET 88 IN 5742 ONE (11:53)
[2016-09-13] MEDS ORDERED: EXTENSION SET 32 IN 4522 ONE (11:53)
--- NOTE | 2016-09-13 12:09 | OPERATIVE NOTE ---
PROCEDURE DATE: 09/13/2016 PROCEDURE: Colonoscopy and esophagogastroduodenoscopy with biopsy. PREOPERATIVE DIAGNOSES: 1. Gastric wall thickening on CT scan. 2. Pneumatosis coli. POSTOPERATIVE DIAGNOSES: 1. Normal upper and lower gastrointestinal tracts. 2. No evidence of any ischemic changes. 3. Poor prep. DESCRIPTION OF PROCEDURE: After informed consent and adequate intravenous sedation by Anesthesia, the scope was introduced to the esophagus, stomach, and duodenum. The duodenum normal. Stomach appears normal and distends normally. Biopsies were randomly obtained. The scope was withdrawn. At this point, digital rectal exam was performed. Scope advanced all the way to the hepatic flexure and into the ascending colon. There was a large amount of retained stool. However, the mucosa appears healthy and there is no evidence of any ischemic changes. The scope was withdrawn. The patient tolerated the procedure well without any immediate complications.
[2016-09-13] MEDS: VALIUM PO SCH ×2 (12:28→21:15)
[2016-09-13] MEDS: CENTRUM SILVER PO SCH (12:28)
[2016-09-13] MEDS: NS 1,000 ML IV SCH ×2 (12:29→21:56)
--- NOTE | 2016-09-13 15:20 | PROGRESS NOTE ---
DATE: 09/13/2016 SUBJECTIVE: The patient is sitting up eating lunch. He states that he would like a 2nd tray of food. He denies having any abdominal pain. He has not had any diarrhea yet today. OBJECTIVE: Vital Signs: Temperature 97.9 degrees, blood pressure 138/74, heart rate 89, respirations 20, O2 saturations 99% on room air. General: This is an elderly male sitting up in bed eating. Head: Normocephalic. Atraumatic. Heart: S1, S2. Normal. Regular rate and rhythm. Lungs: Clear to auscultation bilaterally. No wheezing. No rales. No rhonchi. Abdomen: Positive bowel sounds, soft, nontender, nondistended. Extremities: No edema. No cyanosis. No calf tenderness. Neurologic: The patient is alert and oriented x3. LABS: White blood cell count 6.3, sodium 135, potassium 5.2, hemoglobin 10, hematocrit 33, platelets 163,000. BUN 11, creatinine 0.9, glucose 377, magnesium 1.4. ASSESSMENT AND PLAN: 1. Diarrhea. The patient has not had any diarrheal so far today. He was just started on a gastrointestinal soft diet. We will monitor this closely. The patient's EGD and colonoscopy were noted to be normal. 2. 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 Aware. 3. Tobacco dependence. The patient has been counseled extensively about the importance of smoking cessation. 4. Diabetes mellitus type 2. Will add Levemir 25 units subcutaneous twice a day. 5. Chronic bilateral lower extremity deep vein thrombosis status post inferior vena cava filter. Aware. 6. Gastrointestinal prophylaxis. Continue on Protonix.
[2016-09-13] MEDS: PROTONIX IV SCH (17:55)
[2016-09-13] MEDS: LANTUS SUBQ SCH (21:15)
[2016-09-14] MEDS ORDERED: HUMALOG SUBQ ONE (00:46)
[2016-09-14] MEDS: DILAUDID IV PRN ×5 (01:50→21:23)
[2016-09-14] MEDS: FLAGYL 500 MG/NS 100 ML IV SCH ×4 (01:59→21:22)
[2016-09-14] MEDS: DUONEB (A & A) INH SCH ×6 (03:17→23:14)
[2016-09-14] MEDS: CIPRO 400 MG/D5W 200 ML IV SCH ×2 (04:18→16:45)
[2016-09-14] MEDS: HUMALOG SUBQ SCH ×4 (06:11→21:28)
[2016-09-14 07:14] LABS: HEMATOCRIT 34.7 % (42.0-52.0); HEMOGLOBIN 11.2 g/dL (14.0-18.0); MCH 29.6 PG (27-31); MCHC 32.3 g/dL (33-37); MCV 91.6 FL (81-99); MPV 10.4 FL (7.4-10.4); RBC 3.79 XMIL (4.7-6.1)
[2016-09-14 07:36] LABS: AGAP 10; BUN 11 mg/dL (8-22); CALCIUM 8.8 mg/dL (8.8-10.2); CHLORIDE 100 mmol/L (98-107); COSMO 276; POTASSIUM 3.8 mmol/L (3.5-5.1); SODIUM 139 mmol/L (136-145); TCO2 29 mmol/L (25-35)
--- NOTE | 2016-09-14 08:38 | PROGRESS NOTE ---
DATE: 09/14/2016 SUBJECTIVE: The patient is doing okay. He still reports some pain and discomfort at his perineum from the irritation. Reviewed the findings from colonoscopy. Noticed no findings of ischemic bowel. OBJECTIVE: Vital Signs: Patient is currently afebrile. His vital signs have been stable. General: No acute distress. Resting comfortably in bed. HEENT: Normocephalic atraumatic. Pupils are equally round and reactive to light. Mucous membranes moist. Oropharynx benign. Neck: Supple. Trachea midline. Cardiovascular: Regular rate and rhythm. Lungs: Grossly clear. Abdomen: Soft, nondistended, nontender at this time. Perineum: With excoriation noted. Extremities: Moves all extremities. Neurologic: Grossly intact. Skin: No signs of jaundice. Vascular: All extremities perfused. LABORATORY: Reviewed. Of note, his white blood cell count is 5, hematocrit is 34.7, platelet count 187,000. ASSESSMENT AND PLAN: A 55-year-old male with possible pneumatosis intestinalis and perianal irritation. 1. Pneumatosis intestinalis: Seen on CT scan but not seeing any ischemic areas on colonoscopy. At this time, do not suspect the patient does have clinical ischemic bowel. He does not have any peritoneal signs. Would recommend just following this. 2. Peroneal inflammation: At this time, likely related to fecal incontinence. We will defer to Gastroenterology for any potential treatment. At this time, no surgical intervention planned.
[2016-09-14] MEDS: NICODERM PATCH TD SCH (10:42)
[2016-09-14] MEDS: VALIUM PO SCH ×2 (10:43→21:23)
[2016-09-14] MEDS: CENTRUM SILVER PO SCH (10:43)
[2016-09-14] MEDS: LANTUS SUBQ SCH ×2 (10:43→21:22)
[2016-09-14] MEDS: ANUSOL-HC CREAM PR SCH ×2 (10:43→21:24)
--- NOTE | 2016-09-14 15:57 | PROGRESS NOTE ---
DATE: 09/14/2016 SUBJECTIVE: Patient is currently resting in bed. His perineal inflammation is slightly improved. Vitals: Temperature 98.3 degrees, pulse of 88, respiratory rate 16, blood pressure 151/87, saturating 100% on room air. General Appearance: Moderately nourished, lying in bed, in no acute distress. HEENT: Mild pallor, no icterus. Neck: Supple. Abdomen: Soft, nontender, nondistended. Bowel sounds. Rectal exam: Perianal area appeared inflamed but it was less erythematous than before. He still has ongoing leakage and he is wearing diapers. Extremities: No cyanosis, clubbing. Neurologic: Alert, awake, oriented. LABS: Hemoglobin and hematocrit 11.2 and 34.7, white count of 5.8, platelet count of 187,000. Sodium 139, potassium 3.8, chloride 100, bicarb 29, anion gap 10, BUN of 11, creatinine 1, glucose of 82, calcium is 8.8, magnesium 1.9. INR is 1.11. IMPRESSION AND PLAN: 1. Perianal inflammation. At this point, we will continue with Proctosol HC 2.5% cream per rectal b.i.d. We are going to continue on Metamucil once or twice daily. 2. Pneumatosis intestinal on CT scan but negative colonoscopy with no evidence of any ischemia on colonoscopy. EGD and colonoscopy to be done by Dr. Soria on Friday. 3. Poor prep in the colon suggesting constipation so Metamucil will help him with constipation as well. 4. Above plan discussed with the patient. All questions answered.
--- NOTE | 2016-09-14 16:31 | PROGRESS NOTE ---
DATE: 09/14/2016 SUBJECTIVE: The patient states that he is hungry and wants to at least receive 2 trays with each meal. His blood sugars have been running in the 400s. The nursing staff reports that the patient has been snacking a lot outside of his regular meals. OBJECTIVE: Vital Signs: Temperature 97 degrees, blood pressure 139/73, heart rate 92, respirations 16, O2 saturations 100% on room air. General: This is an elderly chronically ill- appearing male lying in bed in no acute distress. Head: Normocephalic, atraumatic. Heart: S1, S2. Normal. Regular rate and rhythm. Lungs: Clear to auscultation bilaterally. No wheezes, no rales. No rhonchi. Abdomen: Positive bowel sounds. Soft, nontender, nondistended. Extremities: No edema. No cyanosis. No calf tenderness. Neurologic: The patient is alert and oriented x3. LABS: White blood cell count 5.8, hemoglobin 11, hematocrit 34, platelets 187,000. Sodium 139, potassium 3.8, chloride 100, CO2 29, BUN 11, creatinine 1, glucose 429, magnesium 1.9. ASSESSMENT AND PLAN: 1. Perianal inflammation. Continue on Anusol twice a day. GI is following. 2. Pneumatosis coli. Aware. The patient's EGD and colonoscopy were normal. 3. Uncontrolled insulin-dependent diabetes mellitus. The patient has been eating more than recommended time. We will adjust the patient's Lantus dosage. 4. Tobacco dependence. The patient has been counseled about smoking cessation. 5. Chronic bilateral lower extremity deep vein thrombosis status post inferior vena cava filter. Aware. 6. 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 Aware. 7. Gastrointestinal prophylaxis. Continue on Protonix.
[2016-09-14] MEDS: SODIUM CHLORIDE 0.9% INJ SCH (16:41)
[2016-09-14] MEDS: PROTONIX IV SCH (16:51)
[2016-09-14] MEDS: METAMUCIL PO SCH ×2 (21:25)
[2016-09-15] MEDS: FLAGYL 500 MG/NS 100 ML IV SCH ×4 (03:26→20:45)
[2016-09-15] MEDS: DILAUDID IV PRN ×6 (03:26→21:37)
[2016-09-15] MEDS: DUONEB (A & A) INH SCH ×6 (03:57→23:05)
[2016-09-15] MEDS: CIPRO 400 MG/D5W 200 ML IV SCH ×2 (04:32→18:20)
[2016-09-15] MEDS: HUMALOG SUBQ SCH ×4 (06:01→20:46)
[2016-09-15 06:47] LABS: HEMOGLOBIN 10.5 g/dL (14.0-18.0); MCH 29.7 PG (27-31); MCHC 31.8 g/dL (33-37); MCV 93.2 FL (81-99); MPV 9.8 FL (7.4-10.4); RBC 3.54 XMIL (4.7-6.1)
[2016-09-15 07:12] LABS: AGAP 11; BUN 9 mg/dL (8-22); CALCIUM 8.1 mg/dL (8.8-10.2); CHLORIDE 100 mmol/L (98-107); COSMO 275; POTASSIUM 4.3 mmol/L (3.5-5.1); SODIUM 137 mmol/L (136-145); TCO2 26 mmol/L (25-35)
[2016-09-15] MEDS ORDERED: MAGNESIUM SULFATE 2 GM/S.W.I. 50 ML IV ONE (07:28)
[2016-09-15] MEDS: METAMUCIL PO SCH ×4 (08:13→20:45)
[2016-09-15] MEDS: CENTRUM SILVER PO SCH (08:13)
[2016-09-15] MEDS: BENADRYL PO PRN ×2 (08:13→14:57)
[2016-09-15] MEDS: NICODERM PATCH TD SCH (08:13)
[2016-09-15] MEDS: VALIUM PO SCH ×2 (08:13→20:45)
[2016-09-15] MEDS ORDERED: LANTUS SUBQ SCH ×2 (09:00)
[2016-09-15] MEDS: ANUSOL-HC CREAM PR SCH ×2 (09:57→20:47)
--- NOTE | 2016-09-15 13:49 | PROGRESS NOTE ---
DATE: 09/15/2016 SUBJECTIVE: The patient complains of rectal pain. He states that the Anusol does provide some relief, but every time he has a bowel movement the pain returns. He reports that his stools remain liquid. OBJECTIVE: Vital Signs: Temperature 98 degrees, blood pressure 145/81, heart rate 90, respirations 18, O2 saturations 99% on room air. General: This is a chronically ill-appearing, elderly male, lying in bed, in no acute distress. Head: Normocephalic, atraumatic. Heart: S1, S2 normal. Regular rate and rhythm. Lungs: Clear to auscultation bilaterally. No wheezes, no rales. No rhonchi. Abdomen: Positive bowel sounds. Soft, nontender, nondistended. Extremities: No edema. No cyanosis. No calf tenderness. Neurologic: The patient is alert and oriented x3. No focal neurologic deficits noted. LABS: White blood cell count 5.2, hemoglobin 10, hematocrit 33, platelets 177,000. Sodium 137, potassium 4.3, chloride 100, CO2 26, BUN 9, creatinine 0.9, glucose 139, calcium 8.1, magnesium 1.6. ASSESSMENT AND PLAN: 1. Perianal inflammation. Continue on Anusol twice a day. Further recommendations to follow from the emergency worker. 2. Pneumatosis coli, aware. The patient's endoscopy was unremarkable. 3. Uncontrolled insulin-dependent diabetes mellitus. The patient's blood sugars have improved. Continue on Lantus twice a day. 4. Tobacco dependence. Continue on the NicoDerm patch. The patient has been counseled about smoking cessation. 5. Chronic bilateral lower extremity deep venous thrombosis, status post IVC filter. Aware. 6. 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 Aware. 7. Gastrointestinal prophylaxis. Continue on Protonix. 8. Deep venous thrombosis prophylaxis. Continue on Lovenox. DISPOSITION: The patient should be able to be discharged home once cleared by the emergency worker.
[2016-09-15] MEDS: LOVENOX SUBQ SCH (15:01)
[2016-09-15] MEDS: PROTONIX IV SCH (18:20)
--- NOTE | 2016-09-15 18:25 | PROGRESS NOTE ---
DATE: 09/15/2016 SUBJECTIVE: Patient is currently resting in chair. He complains of perianal discomfort which is slightly improved than yesterday. OBJECTIVE: Vital signs: Temperature of 98.5 degrees, pulse of 95, respiratory rate 18, blood pressure 156/89, saturating 98% on room air. General Appearance: Moderately built, moderately nourished, sitting in chair, in no acute distress. HEENT: Mild pallor. No icterus. Neck: Supple. Abdomen: Soft, nontender, nondistended. Bowel sounds present. No guarding. No rebound. Extremities: No cyanosis, clubbing. Neurologic: Alert, awake, oriented. LABS: Hemoglobin and hematocrit are 10.5 and 33, white count 5.2, platelet count of 177,000. Sodium 137, potassium 4.3, chloride 100, bicarb 26, anion gap 11, BUN of 9, creatinine 0.9, glucose 139, calcium is 8.1, and magnesium 1.6. INR 1.11. IMPRESSION AND PLAN: 1. Perianal inflammation. Continue on Anusol HC 2.5% b.i.d., lidocaine 3-4 times daily for local application at the anal area, and Metamucil 1 tablespoon p.o. b.i.d. 2. Constipation. Continue Metamucil as above. Increase fluid intake and increase fiber intake to 30 grams in 24 hours. 3. Pneumatosis coli. The colonoscopy was unremarkable. It showed stool in the right colon. 4. Tobacco abuse, uncontrolled insulin-dependent diabetes mellitus, peripheral arterial disease, stenosis of the proximal left common iliac artery. Per the primary care team. 5. Continue gastrointestinal prophylaxis with Protonix. 6. Above plan was discussed with the patient and all questions were answered. [facility]
[2016-09-15] MEDS: LANTUS SUBQ SCH (20:45)
[2016-09-16] MEDS: DILAUDID IV PRN ×5 (02:53→20:22)
[2016-09-16] MEDS: FLAGYL 500 MG/NS 100 ML IV SCH ×4 (02:54→23:32)
[2016-09-16] MEDS: BENADRYL PO PRN ×2 (03:02→21:20)
[2016-09-16] MEDS: DUONEB (A & A) INH SCH ×5 (03:28→19:46)
[2016-09-16] MEDS: CIPRO 400 MG/D5W 200 ML IV SCH ×2 (04:44→16:56)
[2016-09-16] MEDS: HUMALOG SUBQ SCH ×4 (06:44→23:05)
[2016-09-16 06:50] LABS: HEMATOCRIT 36.4 % (42.0-52.0); HEMOGLOBIN 11.3 g/dL (14.0-18.0); MCH 29.4 PG (27-31); MCV 94.8 FL (81-99); RBC 3.84 XMIL (4.7-6.1)
[2016-09-16 07:11] LABS: AGAP 9; BUN 11 mg/dL (8-22); CALCIUM 8.4 mg/dL (8.8-10.2); CHLORIDE 100 mmol/L (98-107); COSMO 278; SODIUM 137 mmol/L (136-145); TCO2 28 mmol/L (25-35)
[2016-09-16] MEDS ORDERED: INSULIN PEN NEEDLES ONE (07:37)
[2016-09-16] MEDS: NICODERM PATCH TD SCH (08:25)
[2016-09-16] MEDS: LANTUS SUBQ SCH ×2 (08:25→20:31)
[2016-09-16] MEDS: VALIUM PO SCH ×2 (08:26→21:20)
[2016-09-16] MEDS: METAMUCIL PO SCH ×4 (08:26→20:22)
[2016-09-16] MEDS: CENTRUM SILVER PO SCH (08:26)
[2016-09-16] MEDS: ANUSOL-HC CREAM PR SCH ×2 (08:26→21:23)
--- NOTE | 2016-09-16 10:25 | PROGRESS NOTE ---
DATE: 09/16/2016 SUBJECTIVE: Patient is resting in bed. His constipation is improving. He was able to eat a good meal this morning. His perianal pain still bothered him but it is slightly better than before. PHYSICAL EXAMINATION: Vitals: Temperature of 98 degrees, pulse rate of 92, respiratory rate 18, blood pressure of 173/91, saturating 98% on room air. General Appearance: Moderately built, moderate nourished, lying in bed, in no acute distress. HEENT: Mild pallor. No icterus. Neck: Supple. Abdomen: Soft, nontender, nondistended. Bowel sounds heard. No guarding, no rebound. Extremities: No cyanosis, clubbing. Neurologic: He is alert, awake, oriented x3. LABS: Hemoglobin and hematocrit are 11.3 and 36.4, white count of 5.5, platelet count of 190,000. Sodium 135, potassium 5, chloride of 100, bicarb 28, anion gap of 9, BUN of 11, creatinine of 0.9, glucose of 188, calcium is 8.4. IMPRESSION AND PLAN: 1. Perianal inflammation with incontinence. In this regard, we will continue with Anusol HC 2.5% ointment twice daily for 2-4 weeks, lidocaine 3-4 times per day for pain control, and Metamucil 1 tablespoon by mouth twice a day. 2. Constipation. We will continue to treat with Metamucil, increasing fiber intake in diet. 3. Pneumatosis coli. No signs of chronic ischemia noted on the colonoscopy, although there was stool in the right colon noted. 4. Tobacco abuse. The patient was counseled to quit smoking. 5. Peripheral arterial disease and stenosis of the proximal left common iliac artery, likely secondary to arthrosclerosis. The patient was being managed by the primary team and a surgeon in that regard. 6. Gastrointestinal prophylaxis. Protonix. The above plan of care was discussed with the patient.
[2016-09-16] MEDS: LOVENOX SUBQ SCH (11:14)
[2016-09-16] MEDS ORDERED: TUCKS HEMORRHOIDAL OINTMENT PR PRN (14:28)
[2016-09-16] MEDS ORDERED: TUCKS HEMORRHOIDAL OINTMENT PR ONE (14:28)
--- NOTE | 2016-09-16 16:40 | PROGRESS NOTE ---
DATE: 09/16/2016 SUBJECTIVE: The patient is still complaining of rectal pain. It sounds like it has improved since admission but he is still complaining of pain significantly. Other than that, the other issues are fine. OBJECTIVE: Vital signs: Blood pressure is 141/90, heart rate 106, respiratory 16, temperature 98.2, 98% on room air. Cardiovascular: Regular rate and rhythm. Pulmonary: Bilateral breath sounds. Clear to auscultation. GI: Soft, nontender, nondistended. Bowel sounds are positive. LABORATORY DATA: White count is normal. Chemistries look okay. PROBLEM LIST: 1. Colitis and proctitis. He is on Anusol. I am going to add some and we will follow clinically. 2. Pneumatosis. His endoscopy was unremarkable. He is constipated, likely from chronic opiate use. 3. Diabetes. His blood sugars are labile. He is on Lantus. We will continue to monitor. 4. Deep vein thrombosis status post IVC filter. Continue to monitor. DISPOSITION: I think he probably could go home soon. Waiting on final recommendations per GI. Hopefully tomorrow.
[2016-09-16] MEDS: PROTONIX IV SCH (16:56)
[2016-09-16] MEDS: LMX 5 CREAM TOP PRN (21:22)
[2016-09-17] MEDS: DILAUDID IV PRN ×4 (02:00→23:12)
[2016-09-17] MEDS: CIPRO 400 MG/D5W 200 ML IV SCH ×2 (04:31→17:27)
[2016-09-17] MEDS: FLAGYL 500 MG/NS 100 ML IV SCH ×4 (04:35→21:46)
[2016-09-17] MEDS: BENADRYL PO PRN (06:27)
[2016-09-17] MEDS: HUMALOG SUBQ SCH ×3 (06:41→16:17)
[2016-09-17 06:55] LABS: AGAP 10; BUN 13 mg/dL (8-22); CALCIUM 8.5 mg/dL (8.8-10.2); CHLORIDE 101 mmol/L (98-107); COSMO 276; HEMOGLOBIN 11.4 g/dL (14.0-18.0); MCH 29.8 PG (27-31); MCHC 31.7 g/dL (33-37); MCV 94.2 FL (81-99); MPV 10.1 FL (7.4-10.4); POTASSIUM 4.5 mmol/L (3.5-5.1); RBC 3.82 XMIL (4.7-6.1); SODIUM 137 mmol/L (136-145); TCO2 26 mmol/L (25-35)
[2016-09-17] MEDS: DUONEB (A & A) INH SCH ×5 (08:34→23:25)
[2016-09-17] MEDS: LMX 5 CREAM TOP PRN (08:57)
[2016-09-17] MEDS: PROCTOFOAM PR PRN (08:57)
[2016-09-17] MEDS: METAMUCIL PO SCH ×4 (08:58→21:46)
[2016-09-17] MEDS: NICODERM PATCH TD SCH (08:58)
[2016-09-17] MEDS: CENTRUM SILVER PO SCH (08:58)
[2016-09-17] MEDS: ANUSOL-HC CREAM PR SCH ×2 (08:59→21:47)
[2016-09-17] MEDS: LANTUS SUBQ SCH ×2 (09:00→21:46)
[2016-09-17] MEDS: VALIUM PO SCH ×2 (09:06→21:46)
[2016-09-17] MEDS: NORCO-10 PO PRN ×3 (11:30→19:51)
[2016-09-17] MEDS: LOVENOX SUBQ SCH (11:31)
--- NOTE | 2016-09-17 15:51 | PROGRESS NOTE ---
DATE: 09/17/2016 SUBJECTIVE: Mr. Carolina is a 55-year-old male who appears somewhat malnourished is complaining that he just feels crummy today, feels a little more weaker than usual. States he has a cough. He also complains of some lower back pain and abdominal swelling and tightness. Also states that he is nauseated with food but states that he eats very well. He also complains of some intestinal loss of bowel during urination. He states that the stool was normal in color and same consistency as it usually is. Currently no other complaints. OBJECTIVE: Vital signs: Temperature 98.1 degrees, heart rate 102, respiratory 21, blood pressure 123/90, O2 saturation 100% on room air. Cardiovascular: S1, S2. Tachycardic rate and rhythm. No rubs, gallops, murmurs. Pulmonary: Clear to auscultate. Bilateral breath sounds decreased in the bases. GI: Mildly distended, semi firm. Positive bowel sounds x4. Is unsure if he was trying to muscle guard while palpating and he did complain of some tenderness but mostly complains of pain in the rectal area. Extremities: Trace edema in the lower extremities, +2 dorsalis and radial pulses. Neuro: A and O x4. Moves all extremities equally. LABORATORY DATA: White blood cells 8000, hemoglobin 11, hematocrit 36, platelet count 196,000. Sodium 137, potassium 4.5, BUN 13, creatinine 0.8, glucose 134. So for the last 24 hours his sugars have ranged anywhere from [address] to 305. Calcium 8.5. IMAGING: No current imaging. PROCEDURES: On 09/13/2016 had an EGD and colonoscopy with biopsy which revealed normal upper and lower gastrointestinal tract, no evidence of any ischemic changes but had poor bowel prep. ASSESSMENT AND PLAN: 1. Perianal inflammation with incontinence. He is to continue Anusol ointment twice daily for 2- 4 weeks, lidocaine 3-4 times per day for pain control and Metamucil 1 tablespoon by mouth twice a day per GI recommendations. 2. Constipation. He is to continue with Metamucil for increased fiber intake. 3. Pneumatosis coli. No signs of chronic ischemia on the colonoscopy. 4. Diabetes, uncontrolled blood glucoses. Insulin dosing was decreased and sugars have been somewhat more controlled. They have gone up to as high as 305. Will continue with pattern blood glucoses and close monitoring. 5. Deep vein thrombosis now status post inferior vena cava filter. 6. Peripheral arterial disease and stenosis of the proximal left common iliac artery. We are aware. 7. Tobacco abuse. Cessation discussed. 8. Gastrointestinal prophylaxis. Protonix. 9. Deep venous thrombosis prophylaxis. Lovenox. 10. Likely chronic obstructive pulmonary disease but no exacerbation. Continue p.r.n. albuterol, Atrovent nebs. Added guaifenesin as he complains of a cough. 11. Chronic pain syndrome. Continue with his home [place] and with the p.r.n. Dilaudid. Could possibly go home very soon. Dictated by MANJULA Herrera for Jaleel Diaz MD Addendum: I personally evaluated and examined the patient in conjunction to the DIESEL ENGINE MECHANIC and agreed with her assessments and plans. He still complains of the same rectal pain since he had bowel resection many years ago. Snoball seems to work for him. He denies having constipation. He exhibits moderate abd pain with my abd exam. MTDD
[2016-09-17] MEDS: NEURONTIN PO SCH (17:27)
[2016-09-17] MEDS: PROTONIX IV SCH (17:27)
[2016-09-17] MEDS: SODIUM CHLORIDE 0.9% INJ SCH (17:28)
[2016-09-17] MEDS: BIDEX PO SCH (17:32)
[2016-09-18] MEDS: HUMALOG SUBQ SCH ×3 (00:28→11:15)
[2016-09-18] MEDS: DUONEB (A & A) INH SCH ×3 (03:35→11:38)
[2016-09-18] MEDS: FLAGYL 500 MG/NS 100 ML IV SCH ×2 (03:47→11:15)
[2016-09-18] MEDS: CIPRO 400 MG/D5W 200 ML IV SCH (05:16)
[2016-09-18] MEDS: NORCO-10 PO PRN ×2 (05:25→11:20)
[2016-09-18 07:07] LABS: MANUAL DIFF NEEDED? NO
[2016-09-18 07:18] LABS: EOS# 0.23 X1000 (0.0-0.7); EOS% 3.8 % (0.0-10.0); HEMATOCRIT 33.3 % (42.0-52.0); HEMOGLOBIN 10.6 g/dL (14.0-18.0); LYMPH# 1.43 X1000 (1.2-3.4); LYMPH% 23.7 % (20.5-51.1); MCH 29.5 PG (27-31); MCHC 31.8 g/dL (33-37); MCV 92.8 FL (81-99); MONO# 0.53 X1000 (0.11-0.59); MONO% 8.8 % (1.7-9.3); MPV 10.3 FL (7.4-10.4); NEUT% 62.7 % (42.2-75.2); PLT 194 X1000 (130-400); RBC 3.59 XMIL (4.7-6.1)
[2016-09-18 07:33] LABS: AGAP 9; ALKALINE PHOSPHATASE 68 U/L (32-122); BUN 15 mg/dL (8-22); CALCIUM 8.6 mg/dL (8.8-10.2); CHLORIDE 97 mmol/L (98-107); COSMO 271; GOT 43 U/L (10-34); GPT 30 U/L (10-44); MAGNESIUM 1.4 mg/dL (1.5-2.7); POTASSIUM 4.2 mmol/L (3.5-5.1); SODIUM 134 mmol/L (136-145); TCO2 28 mmol/L (25-35); TOTAL BILIRUBIN 0.24 mg/dL (0.20-1.00); TOTAL PROTEIN 5.7 g/dL (6.3-8.3)
[2016-09-18] MEDS: LANTUS SUBQ SCH (08:58)
[2016-09-18] MEDS: CENTRUM SILVER PO SCH (08:58)
[2016-09-18] MEDS: NICODERM PATCH TD SCH (08:58)
[2016-09-18] MEDS: METAMUCIL PO SCH ×2 (08:58)
[2016-09-18] MEDS: NEURONTIN PO SCH ×2 (08:58→12:13)
[2016-09-18] MEDS: BIDEX PO SCH ×2 (08:58→12:13)
--- NOTE | 2016-09-18 09:01 | Diag Imaging Result Document ---
PROCEDURE NAME: CHEST-2 VIEWS - 09/18/2016 TWO VIEWS OF THE CHEST: FINDINGS: There is blunting of the costophrenic angles and some volume loss in the right base. This may be due to fibrosis. There are multiple old rib fractures on the right. There is apparent COPD. Compared to 09/11/2016, there has been no appreciable change and no previous studies to this are available for comparison. IMPRESSION: Pleural and parenchymal fibrotic changes on the right.
[2016-09-18] MEDS: VALIUM PO SCH (09:02)
[2016-09-18] MEDS: PROCTOFOAM PR PRN (09:03)
[2016-09-18] MEDS: LMX 5 CREAM TOP PRN (09:03)
[2016-09-18 09:17] VITALS: BP 117/78
[2016-09-18] MEDS ORDERED: MAGNESIUM SULFATE 2 GM/S.W.I. 50 ML IV ONE (09:25)
[2016-09-18] MEDS: LOVENOX SUBQ SCH (12:13)
--- NOTE | 2016-09-18 15:18 | DISCHARGE SUMMARY ---
ADMISSION DATE: 09/11/2016 DISCHARGE DATE: 09/18/2016 CONSULTATIONS: 1. Dr. Jimmie Hwang with General Surgery. 2. Dr. Braxton Irving with Gastroenterology. PERTINENT PROCEDURES: 1. Colonoscopy and EGD with biopsy performed by Dr. Soria. 2. Extremity venous Dopplers showed extensive chronic thrombosed involving the deep and superficial veins bilaterally of the lower extremities. Could not rule out areas of acute DVT involving the deep veins of the bilateral lower extremities with a chronic disease and possible acute disease. Did not cause any obstruction of these veins. 3. Echocardiogram showed an EF of 55-60%. 4. Abdomen and pelvis CT shows markedly distended urinary bladder. 5. Pneumatosis involving the proximal colon and bowel. 6. Hepatosplenomegaly thickening to the gastric wall although it is incompletely distended. Extremely tight stenosis over 90% involving the proximal left common iliac artery. DISCHARGE DIAGNOSES: 1. Perianal inflammation with incontinence. Continue Anusol as well as lidocaine for pain control and Metamucil twice a day per GI recommendations. 2. Constipation. Continue with Metamucil. 3. Pneumatosis coli. No signs of chronic ischemia on the colonoscopy. 4. Diabetes mellitus uncontrolled. 5. Deep vein thrombosis. Now status post inferior vena cava filter. 6. Peripheral artery disease and stenosis of the proximal left common iliac artery, aware. 7. Tobacco abuse. Education as well as smoking cessation have been discussed. 8. Chronic obstructive pulmonary disease but no exacerbation. Continue home medications. 9. Chronic pain syndrome. Continue with home pain medications. HOSPITAL COURSE: Briefly, Mr. Carolina is a 55-year-old male, with history of diabetes mellitus, hypertension, nicotine dependence, history of bowel perforation he blamed on high blood pressure around a year ago. The patient stated he had a partial colectomy with an ostomy bag placed and subsequent reversal of his ostomy. He came to the ED with complaints of the past 3 months that he had been having heavy amounts of diarrhea, occasional hematochezia. He had gone to multiple hospitals in [facility] and he felt he had not been treated appropriately. He was given some type of powder assumed to be Questran to relieve diarrhea. He also reported abdominal pain in the right lower and left lower quadrants, fairly intense at times. Not been able to eat much, he was losing weight. He came to our ED for evaluation because the pain was getting worse and worse. His laboratory data did not show anything acute. No white count. He did have a CT of the abdomen and pelvis that did reveal he had a markedly distended urinary bladder with pneumatosis coli involving the proximal colon and thickening of the gastric wall. Also noted to have an extremely tight stenosis over 90% involving the proximal left common iliac artery. On physical exam his abdomen was soft and nonrigid, but it was quite tender to palpation. The patient was admitted. Cultures were obtained. He was started on Cipro, Floxin , Flagyl, and a GI and surgical consult. The patient did undergo an EGD colonoscopy with Dr. Soria and showed a normal airway and lower GI tracts. No evidence of any ischemic changes. Dr. Hwang assessed the patient. He felt that he did not have peritoneal signs, just perianal inflammation that is dramatic. He suggested pain relief as well as treatment for fecal incontinence. He also found out that the patient had had his colectomy with colostomy at the end of 2014 and that reversed 6 months later in the middle of 2015. This was all done at [facility]. GI recommended to continue with Anusol twice daily for 2-4 weeks and lidocaine 3-4 times per day for pain control and Metamucil 1 teaspoon by mouth twice daily, and to increase the fiber intake in his diet, and again very heavily counseled against smoking cessation. ASSESSMENT AND PLAN: The patient is being discharged home today with home health. He will need to obtain a primary care physician and follow up with him in 7-10 days and he will need to follow up with Dr. Soria any as indicated. The patient has been advised against smoking cessation as well as he needs to quit. The patient can return to the ED for any worsening of symptoms. DISCHARGE TIME: Greater than 30 minutes. Dictated by MANJULA Whitley for Jaleel Diaz MD Addendum: I personally evaluated and examined the patient in conjunction to the RISK MANAGEMENT DIRECTOR and agreed with her disposition. CYNDY
--- NOTE | 2016-09-18 18:25 | PROGRESS NOTE ---
DATE: 09/17/2016 SUBJECTIVE: The patient is resting well. He is having a bowel movement with improvement of constipation. He is eating, although not as much as usual history. He still has some perianal irritation. PHYSICAL EXAMINATION: Vital Signs: Temperature 98 degrees, pulse 92, respiratory rate 18, blood pressure 178/90, saturation 98% on room air. General: Moderately built, moderately nourished, in no acute distress. HEENT: Mild pallor. No icterus. Neck: Supple. Lungs: No rales. Heart: Normal first and second heart sounds. Abdomen: Soft, nontender, nondistended. Bowel sounds are present and normal. No guarding and rebound . Extremities: No cyanosis or clubbing. Neurological: Alert, awake, oriented x3. LABORATORY DATA: Hemoglobin and hematocrit are stable at 11.3 and 36, white count 5.5. Electrolytes are normal. Glucose is slightly high at 188. IMPRESSION AND PLAN: 1. Perianal inflammation with incontinence, which is most likely secondary to constipation. He is getting Anusol, which it should be continued, and lidocaine. 2. Constipation is being treated with Metamucil. 3. Pneumatosis coli without any evidence of ischemia, should resolve. 4. Chronic obstructive pulmonary disease. 5. Tobacco abuse. 6. Peripheral vascular disease. 7. Gastrointestinal prophylaxis with Protonix. We will continue to follow with you.
== END 2016-09-18 13:52 | disposition home health service (06) | DRG 394 ==
LOC: ED 10:40 → 3N 16:46
PROVIDERS: ATTEND Internal Medicine
PROC: 0DB68ZX Excision of Stomach, Via Natural or Artificial Opening Endoscopic, Diagnostic (ICD-10-PCS; principal; 2016-09-13 11:02)
PROC: 0DJD8ZZ Inspection of Lower Intestinal Tract, Via Natural or Artificial Opening Endoscopic (ICD-10-PCS; 2016-09-13 11:02)
DX: K63.89 Other specified diseases of intestine (principal); K92.1 Melena; E10.40 Type 1 diabetes mellitus with diabetic neuropathy, unspecified; E10.51 Type 1 diabetes mellitus with diabetic peripheral angiopathy without gangrene; I82.503 Chronic embolism and thrombosis of unspecified deep veins of lower extremity, bilateral; R19.7 Diarrhea, unspecified; E10.65 Type 1 diabetes mellitus with hyperglycemia; K62.89 Other specified diseases of anus and rectum; I10 Essential (primary) hypertension; J44.9 Chronic obstructive pulmonary disease, unspecified; F17.210 Nicotine dependence, cigarettes, uncomplicated; F41.9 Anxiety disorder, unspecified; Z90.49 Acquired absence of other specified parts of digestive tract; K59.00 Constipation, unspecified; G89.4 Chronic pain syndrome; I70.8 Atherosclerosis of other arteries
CPT/HCPCS: 71010; 71020; 74177; 80048; 80053; 81001; 82150; 82270; 82438; 82550; 82746; 82948; 83036; 83540; 83550; 83605; 83630; 83690; 83735; 84100; 84302; 84439; 84443; 84484; 84999; 85025; 85027; 85610; 85730; 87040; 87088; 87177; 87324; 87338; 88305; 88312; 88313; 89055; 93005; 93306; 93970; 94640; 94761; 96374; 96375; C9113; J0744; J1170; J1200; J1650; J1815; J2250; J2270; J3475; J7030; J7120; Q9967; S0030; S0164